=== PATIENT | female | born 1980 | race Caucasian/White ===

== ENCOUNTER 2018-09-20 21:43 | Inpatient (IN) | payer OTHER ==
[2018-09-20] MEDS: Misoprostol TAB* 100 MCG PO PRN (23:46)
[2018-09-21 00:03] LABS: Hematocrit 27 % (33-41); Hemoglobin 8.7 g/dL (12.0-16.0); Mean Corpuscular HGB Conc 32 g/dL (31-36); Mean Corpuscular Hemoglobin 22 pg (27-31); Mean Corpuscular Volume 68 fL (80-97); Mean Platelet Volume 9.3 fL (7.4-10.4); Platelet Count 285 10^3/uL (150-450); Red Blood Count 4.04 10^6 /uL (3.70-4.87); Red Cell Distribution Width 18 % (10.5-15); White Blood Count 9.7 10^3/uL (3.5-10.8)
[2018-09-21] MEDS ORDERED: Buffered Lidocaine 1% SYRIN* 1 ML/SYRINGE INTRADERM ONE (00:21)
[2018-09-21] MEDS ORDERED: Lactated Ringers 1000 ML Bag* 1,000 ML IV ONE (00:21)
[2018-09-21 00:33] LABS: ABS Basophils 0.1 10^3/ul (0-0.2); ABS Eosinophils 0.2 10^3/ul (0-0.6); ABS Lymphocytes 2.7 10^3/ul (1.0-4.8); ABS Monocytes 0.6 10^3/ul (0-0.8); ABS Neutrophils 6.3 10^3/ul (1.5-7.7); ABS Nucleated RBC 0 10^3/ul; Lymphocyte % 27.3 %; Nucleated Red Blood Cells % 0
[2018-09-21] MEDS ORDERED: Lactated Ringers 1000 ML Bag* 1,000 ML IV SCH ×2 (01:00→19:00)
[2018-09-21] MEDS: Misoprostol TAB* 100 MCG PO PRN ×2 (04:16→11:25)
[2018-09-21] MEDS ORDERED: ceFOXitin 2 GM IVPREMIX* 2 GM/50 ML BAG IVPB ONE (12:47)
[2018-09-21] MEDS ORDERED: Sodium Citrate/Citric Acid* 15 ML UDC ONE (12:56)
[2018-09-21] MEDS ORDERED: Morphine PF AMP (0.5MG/ML)* 5 MG/10 ML AMP ONE (13:10)
[2018-09-21] MEDS ORDERED: Phenylephrine 40 MCG/ML SYRINGE ONE (13:30)
[2018-09-21] MEDS ORDERED: OXYTOCIN* 10 UNITS/ML 1 ML VIAL ONE (13:37)
[2018-09-21] MEDS ORDERED: Ketorolac INJ* 30 MG/ML 1 ML VIAL ONE (13:37)
[2018-09-21] MEDS ORDERED: Ondansetron INJ* 2 MG/ML VIAL IV PRN ×2 (13:46→13:47)
[2018-09-21] MEDS ORDERED: Naloxone* 0.4 MG/ML 1 ML VIAL IV PRN ×2 (13:46→13:47)
[2018-09-21] MEDS ORDERED: fentaNYL* 50 MCG/ML 2 ML VIAL (100 MCG VIAL) IV PRN (13:46)
[2018-09-21] MEDS ORDERED: Scopolamine 1.5 mg* PATCH TRANSDERM PRN (13:47)
[2018-09-21] MEDS ORDERED: oxyCODONE/Acetamin 5/325 MG* TAB PO PRN (13:47)
[2018-09-21] MEDS ORDERED: diPHENhydraMINE IV* 50 MG/ML 1 ml VIAL (BENADRYL) IV PRN (13:47)
[2018-09-21] MEDS ORDERED: DiMENhydriNATE IV* 50 MG/ML VIAL IV PUSH PRN (13:47)
[2018-09-21] MEDS ORDERED: Nalbuphine* 10 MG/ML 1 ML VIAL IV PRN (13:47)
[2018-09-21] MEDS ORDERED: EPHEDrine (Pressors)* 50 MG/ML VIAL ONE (14:01)
[2018-09-21] MEDS ORDERED: Oxytocin in LR* 20 UNITS/1,000 ML BAG IVPB ONE (14:40)
[2018-09-21] MEDS ORDERED: Witch Hazel PAD* JAR TOPICAL PRN (18:04)
[2018-09-21] MEDS ORDERED: Glycerin ADULT SUPP PR PRN (18:04)
[2018-09-21] MEDS ORDERED: Dibucaine 1% 28.35 GM TUBE PR PRN (18:04)
[2018-09-21] MEDS: Docusate CAP* 100 MG PO SCH (21:25)
[2018-09-21] MEDS: Simethicone TAB* 80 MG TAB.CHEW PO SCH (21:25)
--- NOTE | 2018-09-21 21:37 | OP ---
DATE OF OPERATION: 09/21/18 - ROOM #115 DATE OF : 76 SURGEON: Stephanie Tapia MD. WAX POT TENDER: Dr. Ernie Lares. ANESTHESIOLOGIST: Dr. Garza. PRE-OP DIAGNOSIS: Category II heart tracing remote from delivery, prolonged rupture of membranes; greater than 96 hours, 40 and 6/7 weeks' intrauterine . POST-OP DIAGNOSIS: Category II heart tracing remote from delivery, prolonged rupture of membranes; greater than 96 hours, 40 and 6/7 weeks' intrauterine . OPERATIVE PROCEDURE: Primary low transverse section. ESTIMATED BLOOD LOSS: 500 cc. URINE OUTPUT: 175 cc of clear yellow urine. IV FLUIDS: 1700 cc of crystalloid. FINDINGS: Revealed thick meconium, foul-smelling aminocitric fluid. Placenta with amniotic staining of meconium. Cultures obtained of placenta. Female fetus, Apgars of 8 at 1 minute; 9 at 5 minutes, nuchal cord x2, weight was 8 pounds 10 ounces. Normal-appearing tubes and ovaries bilaterally. COMPLICATIONS: None apparent. DISPOSITION: Stable to recovery room. DESCRIPTION OF PROCEDURE: Patient was taken to OR, underwent spinal anesthesia and prep and drape of the abdomen. Patient was identified with the universal protocol. Incision was made 2 fingerbreadths above the pubic symphysis, carried down through to the fascia. The fascia was scored in the midline and extended laterally and superiorly using Chi scissors. The rectus muscle was from the fascia with blunt and sharp dissection. The peritoneum was then entered sharply with Metzenbaum scissors. The peritoneal incision was extended bluntly. Bladder blade was inserted. Lower uterine segment was identified with an Allis. Allis was used to tent up on the lower uterine segment. This was carried down through to membranes. Thick amniotic fluid was noted. The uterine incision was extended laterally and superiorly using bandage scissors. There was a nuchal cord noted around the neck. The head was then delivered and a second nuchal cord was noted. The baby was delivered in total and the cord was milked, clamped with Faye, and the infant was handed off to awaiting armature connector. Cord gases were obtained. Appropriate cord blood was obtained. The placenta was then manually extracted, noted to have a foul smell in the membranes and placenta. The placenta was sent to pathology. Culture was obtained. Uterine cavity was explored and noted to be free of any membranes or placental tissue. The uterus was exteriorized. The uterine cavity was again explored and noted to be free of any membranes or placental tissue again. The incision was reapproximated in 2 layers, first layer running locked 0 Vicryl, second layer running imbricated 0 Vicryl. The uterus was returned intraabdominally. Colic gutters were lavaged. Prior to returning the uterus intraabdominally, normal tubes and ovaries were appreciated. Pelvic gutters were lavaged. Hysterotomy site was noted to be hemostatic. The peritoneum was then reapproximated with 3-0 Vicryl in a running fashion. Subfascial area was visualized and noted to be hemostatic and the fascia itself was reapproximated using 0 Vicryl x2. Subcu was lavaged. Hemostasis was assured with Bovie coagulation and a subcuticular Camper stitch was placed using interrupted 3-0 Vicryl. Skin was then reapproximated using 4-0 Monocryl in a subcuticular fashion. Mastisol and Steris were applied. All sponge, instrument and blade counts were correct throughout the case. The patient tolerated the procedure well and went to recovery room in stable condition. [id number]/[facility] #: [id number] MIHIR
[2018-09-21] MEDS: Ketorolac INJ* 30 MG/ML 1 ML VIAL IV PRN (23:56)
[2018-09-22] MEDS ORDERED: oxyCODONE/Acetamin 5/325 MG* TAB PO PRN ×2 (05:48)
[2018-09-22] MEDS: Ketorolac INJ* 30 MG/ML 1 ML VIAL IV PRN ×2 (06:02→12:00)
[2018-09-22 06:56] LABS: ABS Basophils 0 10^3/ul (0-0.2); ABS Eosinophils 0 10^3/ul (0-0.6); ABS Lymphocytes 1.1 10^3/ul (1.0-4.8); ABS Monocytes 0.6 10^3/ul (0-0.8); ABS Neutrophils 14.2 10^3/ul (1.5-7.7); ABS Nucleated RBC 0 10^3/ul; Eosinophil % 0.1 %; Hematocrit 26 % (33-41); Hemoglobin 7.9 g/dL (12.0-16.0); Lymphocyte % 6.8 %; Mean Corpuscular HGB Conc 31 g/dL (31-36); Mean Corpuscular Hemoglobin 21 pg (27-31); Mean Corpuscular Volume 68 fL (80-97); Nucleated Red Blood Cells % 0; Platelet Count 227 10^3/uL (150-450); Red Blood Count 3.75 10^6 /uL (3.70-4.87); Red Cell Distribution Width 19 % (10.5-15); White Blood Count 15.9 10^3/uL (3.5-10.8)
[2018-09-22] MEDS: Simethicone TAB* 80 MG TAB.CHEW PO SCH ×4 (09:13→19:58)
[2018-09-22] MEDS: Docusate CAP* 100 MG PO SCH ×3 (09:14→19:58)
[2018-09-22] MEDS: Ferrous Gluconate TAB* 324 MG TAB PO SCH (09:14)
[2018-09-22] MEDS: Acetaminophen TAB* 325 MG PO PRN ×3 (12:05→19:58)
[2018-09-22 17:40] LABS: ABS Basophils 0.1 10^3/ul (0-0.2); ABS Eosinophils 0 10^3/ul (0-0.6); ABS Lymphocytes 1.3 10^3/ul (1.0-4.8); ABS Monocytes 0.7 10^3/ul (0-0.8); ABS Neutrophils 13.1 10^3/ul (1.5-7.7); ABS Nucleated RBC 0 10^3/ul; Eosinophil % 0.1 %; Hematocrit 25 % (33-41); Hemoglobin 7.9 g/dL (12.0-16.0); Lymphocyte % 8.3 %; Mean Corpuscular HGB Conc 31 g/dL (31-36); Mean Corpuscular Hemoglobin 21 pg (27-31); Mean Corpuscular Volume 67 fL (80-97); Mean Platelet Volume 8.6 fL (7.4-10.4); Nucleated Red Blood Cells % 0; Platelet Count 248 10^3/uL (150-450); Red Blood Count 3.75 10^6 /uL (3.70-4.87); Red Cell Distribution Width 19 % (10.5-15); White Blood Count 15.2 10^3/uL (3.5-10.8)
[2018-09-22] MEDS ORDERED: Albuterol HFA INHALER* 8 gm MDI INH PRN (17:47)
[2018-09-22 17:52] LABS: Influenza A Molecular NEGATIVE (Negative); Influenza B Molecular NEGATIVE (Negative)
--- NOTE | 2018-09-22 17:53 | PN ---
Progress Note - Progress Note Date of Service: 09/22/18 SOAP: Subjective: [Patient is post op day #1 from a section due to distress and prolonged ruptured membranes. She bhas developed a persistent productiveb cough throughout the day, accompanied by fever and genneralized malaise. She admits to shortness of breath, denies wheezing, sneezing, runny nose, chest, abdominal, or lower extremity pain.] Objective: [ Vital Signs Temp Pulse Resp BP Pulse Ox 101 F 110 20 135/58 99 09/22/18 16:55 09/22/18 16:55 09/22/18 16:55 09/22/18 16:55 09/22/18 16:55 Laboratory Last Values WBC 15.2 10^3/uL (3.5-10.8) H 09/22/18 17:03 RBC 3.75 10^6 /uL (3.70-4.87) 09/22/18 17:03 Hgb 7.9 g/dL (12.0-16.0) L 09/22/18 17:03 Hct 25 % (33-41) L 09/22/18 17:03 MCV 67 fL (80-97) L 09/22/18 17:03 MCH 21 pg (27-31) L 09/22/18 17:03 MCHC 31 g/dL (31-36) 09/22/18 17:03 RDW 19 % (10.5-15) H 09/22/18 17:03 Plt Count 248 10^3/uL (150-450) 09/22/18 17:03 MPV 8.6 fL (7.4-10.4) 09/22/18 17:03 Neut % (Auto) 86.4 % 09/22/18 17:03 Lymph % (Auto) 8.3 % 09/22/18 17:03 [place] % (Auto) 4.6 % 09/22/18 17:03 Eos % (Auto) 0.1 % 09/22/18 17:03 Baso % (Auto) 0.6 % 09/22/18 17:03 Absolute Neuts (auto) 13.1 10^3/ul (1.5-7.7) H 09/22/18 17:03 Absolute Lymphs (auto) 1.3 10^3/ul (1.0-4.8) 09/22/18 17:03 Absolute Monos (auto) 0.7 10^3/ul (0-0.8) 09/22/18 17:03 Absolute Eos (auto) 0 10^3/ul (0-0.6) 09/22/18 17:03 Absolute Basos (auto) 0.1 10^3/ul (0-0.2) 09/22/18 17:03 Absolute Nucleated RBC 0 10^3/ul 09/22/18 17:03 Nucleated RBC % 0 09/22/18 17:03 Blood Type O Positive 09/20/18 22:50 Antibody Screen Negative 09/20/18 22:50 Lungs- no abnormal breath sounds noted, decreased breath sounds at the base of the lungs b/l. CV-Tachycardic, Reg rate/rhythm, no abnormal heartsounds noted Abdomen soft, NT, Distended, NABS, Incision pad C/D/I no discharge noted. Uterus below umbilicus not tender. LE- not tender b/l. neg sydni's sign ] VE- MRL Assessment: [Patient with Cough, Fever, shortness of breath, malaise, tachycardic and POxof 99% on RA.] Plan: [S/sx are c/w a respiratory process, CBC,Rapid Flu testing, CXR and sputum cultures pending to R/O pneumonia. Treatment will bw based on laboratory, Radiological studies results and Pts exam. ]
[2018-09-22] MEDS: Ibuprofen TAB* 600 MG PO PRN (18:34)
[2018-09-23] MEDS: Ibuprofen TAB* 600 MG PO PRN ×4 (00:02→19:48)
[2018-09-23] MEDS: Ferrous Gluconate TAB* 324 MG TAB PO SCH ×3 (00:39→19:54)
[2018-09-23] MEDS: Acetaminophen TAB* 325 MG PO PRN ×4 (03:33→21:43)
[2018-09-23] MEDS: Docusate CAP* 100 MG PO SCH ×3 (08:14→19:48)
[2018-09-23] MEDS: Simethicone TAB* 80 MG TAB.CHEW PO SCH ×4 (08:14→21:43)
[2018-09-23 19:56] VITALS: BP 110/56
[2018-09-24] MEDS: Acetaminophen TAB* 325 MG PO PRN ×3 (02:03→11:23)
[2018-09-24] MEDS: Ibuprofen TAB* 600 MG PO PRN ×2 (02:03→08:05)
[2018-09-24] MEDS: Docusate CAP* 100 MG PO SCH (08:05)
[2018-09-24] MEDS: Simethicone TAB* 80 MG TAB.CHEW PO SCH (08:05)
[2018-09-24] MEDS: Ferrous Gluconate TAB* 324 MG TAB PO SCH (08:51)
[2018-09-24] MEDS ORDERED: Scopolamine PATCH Remove* 1 NOTE MISC PATCH OFF PRN (13:51)
== END 2018-09-24 13:34 | disposition home or self-care (01) | DRG 540 ==
LOC: MCHOBOUT 21:43 → MCHOB 22:33
PROVIDERS: ADMIT Obstetrics & Gynecology; ATTEND Obstetrics & Gynecology
PROC: 3E0P7VZ Introduction of Hormone into Female Reproductive, Via Natural or Artificial Opening (ICD-10-PCS; 2018-09-20)
PROC: 4A1HXCZ Monitoring of Products of Conception, Cardiac Rate, External Approach (ICD-10-PCS; 2018-09-20)
PROC: 10D00Z1 Extraction of Products of Conception, Low, Open Approach (ICD-10-PCS; principal; 2018-09-21 13:10)
DX: O48.0 Post-term pregnancy (principal); O99.42 Diseases of the circulatory system complicating childbirth; O75.2 Pyrexia during labor, not elsewhere classified; Z37.0 Single live birth; O42.12 Full-term premature rupture of membranes, onset of labor more than 24 hours following rupture; Z3A.40 40 weeks gestation of pregnancy; O24.420 Gestational diabetes mellitus in childbirth, diet controlled; O76 Abnormality in fetal heart rate and rhythm complicating labor and delivery; O69.81X0 Labor and delivery complicated by cord around neck, without compression, not applicable or unspecified; O77.0 Labor and delivery complicated by meconium in amniotic fluid; O26.813 Pregnancy related exhaustion and fatigue, third trimester; R00.0 Tachycardia, unspecified; O90.81 Anemia of the puerperium
CPT/HCPCS: 36415; 71046; 85025; 85027; 86850; 86900; 86901; 87070; 87205; 88307; A9270-GY; J0694; J1885; J2590; S0191